=== PATIENT | female | born 1995 | race Caucasian/White ===

== ENCOUNTER 2019-02-22 23:59 | Emergency (ER) | payer OTHER ==
[~2019-02-22] VITALS: Ht 149.9 cm; Wt 63.5 kg
[2019-02-23 00:10] VITALS: BP 113/59
--- NOTE | 2019-02-23 00:13 | NUR ---
TO [facility] AMBULATORY
--- NOTE | 2019-02-23 00:50 | NUR ---
PT AMBULATED TO ER BED 02
--- NOTE | 2019-02-23 01:00 | NUR ---
NAUSEA, LOWER BACK PAIN, ABD PAIN, H/A, CHILLS SINCE MONDAY
[2019-02-23 01:07] VITALS: BP 108/62
--- NOTE | 2019-02-23 01:07 | NUR ---
Patient discharged with v/s stable. Written and verbal after care instructions given and explained. Patient alert, oriented and verbalized understanding of instructions. Ambulatory with steady gait. All questions addressed prior to discharge. ID band removed. Patient advised to follow up with PMD. Rx of Zofran and Ibuprofen given. Patient educated on indication of medication including possible reaction and side effects. Opportunity to ask questions provided and answered.
== END 2019-02-23 01:07 | disposition home or self-care (01) ==
LOC: MED 23:59
DX: K52.9 Noninfective gastroenteritis and colitis, unspecified (principal)
CPT/HCPCS: 99283

== ENCOUNTER 2020-03-14 09:10 | Emergency (ER) | payer OTHER ==
[~2020-03-14] VITALS: Ht 149.9 cm; Wt 56.7 kg
[2020-03-14 09:13] VITALS: BP 118/71
--- NOTE | 2020-03-14 09:20 | NUR ---
PT AMBULATED TO BED 12. HANDED ON URINE CUP.
--- NOTE | 2020-03-14 09:31 | NUR ---
24/F C/O INTERMITTENT LOWER ABDOMINAL PAIN RADIATING TO LOWER BACK X 6 DAYS WITH DYSURIA. NO N/V/D OR FEVER/CHILLS. VSS. MED HX: DENIES
[2020-03-14] MEDS ORDERED: KETOROLAC 60 MG/2 ML VIAL IM ONE (10:10)
--- NOTE | 2020-03-14 10:39 | NUR ---
PT STATES NO MORE PAIN AT THIS TIME. DR STARR MADE AWARE.
[2020-03-14 10:46] VITALS: BP 118/71
--- NOTE | 2020-03-14 10:47 | NUR ---
Patient discharged with v/s stable. Written and verbal after care instructions given and explained. Patient alert, oriented and verbalized understanding of instructions. Ambulatory with steady gait. All questions addressed prior to discharge. ID band removed. Patient advised to follow up with PMD. Rx of NORCO, IBUPROFEN, CIPRO, ZOFRAN given. Patient educated on indication of medication including possible reaction and side effects. Opportunity to ask questions provided and answered.
== END 2020-03-14 10:47 | disposition home or self-care (01) ==
LOC: MED 09:10
DX: N39.0 Urinary tract infection, site not specified (principal)
CPT/HCPCS: 81002; 81025; 96372; 99283; J1885

== ENCOUNTER 2020-03-24 17:34 | Emergency (ER) | payer OTHER ==
[~2020-03-24] VITALS: Ht 149.9 cm; Wt 72.6 kg
[2020-03-24 17:43] VITALS: BP 114/73
--- NOTE | 2020-03-24 17:57 | NUR ---
lisa sy at bedside evaluating pt.
--- NOTE | 2020-03-24 17:57 | NUR ---
C/O VAGINAL BLEEDING/ABD PAIN RADIATING TO BACK STARTED MONDAY AND TODAY PATIENT PASSED LARGE BLOOD CLOT WITH WHAT LOOKED LIKE TISSUE CONTENTS. PT IS ON DEPO SHOT FOR CONTROL FOR ONE MONTH. DENIES N/V . PT AOR4 , AFIBRILE , AMBULATORY WITH STEADY GAIT , PINK PALPEBRAL CONJUNCTIVA ,ANICTERIC SCLERA , SCE , FLAT SOFT ABDOMEN. NKDA NO PMH
[2020-03-24 18:30] VITALS: BP 114/73
--- NOTE | 2020-03-24 18:30 | NUR ---
Patient discharged with v/s stable. Written and verbal after care instructions given and explained regarding UTI. Patient alert, oriented and verbalized understanding of instructions. Ambulatory with steady gait. All questions addressed prior to discharge. ID band removed. Patient advised to follow up with PMD. Rx of macrobid given. Patient educated on indication of medication including possible reaction and side effects. Opportunity to ask questions provided and answered.
== END 2020-03-24 18:30 | disposition home or self-care (01) ==
LOC: MED 17:34
DX: N39.0 Urinary tract infection, site not specified (principal); L72.3 Sebaceous cyst
CPT/HCPCS: 81002; 81025; 99282; 99283

== ENCOUNTER 2020-05-15 19:11 | Emergency (ER) | payer OTHER ==
[~2020-05-15] VITALS: Ht 149.9 cm; Wt 68.9 kg
[2020-05-15 19:20] VITALS: BP 121/81
--- NOTE | 2020-05-15 19:23 | NUR ---
TO LOBBY A/W BED AMBULATORY, WITH SPICEMEN CUP FOR URINE
--- NOTE | 2020-05-15 20:22 | NUR ---
PT AMBULATED TO CHAIR C.
[2020-05-15] MEDS ORDERED: HYDROcodone/APAP 5/325 MG 1 TAB TAB PO ONE (20:30)
[2020-05-15 20:40] VITALS: BP 121/81
--- NOTE | 2020-05-15 20:40 | NUR ---
SEE COMPLETE ASSESSMENT FOR ADDITIONAL INFORMATION.
[2020-05-15 21:14] LABS: APPEARANCE,URINE CLOUDY (CLEAR); BILIRUBIN,URINE NEGATIVE (NEGATIVE); BLOOD, URINE NEGATIVE (NEGATIVE); COLOR,URINE YELLOW (YELLOW); LEUKOCYTE ESTERASE ,URINE TRACE (NEGATIVE); NITRITE, URINE POSITIVE (NEGATIVE); UGLUCOSE NEGATIVE (NEGATIVE)
[2020-05-15 22:35] LABS: RBC,URINE 0-5 /HPF (0-5)
--- NOTE | 2020-05-19 18:03 | NUR ---
Urine culture received from lab. Culture and sensitivity received and shown to Dr. Ferro. New Rx for Bactrim DS received. Patient called and given culture results. Spoke with patient to obtain pharmacy preference. New Rx called into [facility] in [place]. Copy of C&S placed in discrepancy folder.
== END 2020-05-15 20:57 | disposition home or self-care (01) ==
LOC: MED 19:11
DX: D17.9 Benign lipomatous neoplasm, unspecified (principal)
CPT/HCPCS: 81001; 81025; 87086; 99283

== ENCOUNTER 2020-05-26 11:21 | Day surgery (SDC) | payer OTHER, SELFPAY ==
[~2020-05-26] VITALS: Ht 149.9 cm; Wt 65.8 kg
== END 2020-05-26 13:15 | disposition home or self-care (01) ==
LOC: MFCC 11:21 → MDS 11:21
PROVIDERS: ATTEND Surgery
DX: D17.1 Benign lipomatous neoplasm of skin and subcutaneous tissue of trunk (principal); N13.30 Unspecified hydronephrosis; Z20.828 Contact with and (suspected) exposure to other viral communicable diseases; Z53.8 Procedure and treatment not carried out for other reasons
CPT/HCPCS: 81025; 87426; U0003; J0690; J7060

== ENCOUNTER 2020-05-28 09:58 | Day surgery (SDC) | payer OTHER, SELFPAY ==
[~2020-05-28] VITALS: Ht 149.9 cm; Wt 65.8 kg
[2020-05-28] MEDS ORDERED: KETOROLAC 30 MG/ML VIAL ONE (10:27)
[2020-05-28] MEDS ORDERED: ESMOLOL 100 MG/10 ML VIAL IV ONE (10:27)
[2020-05-28] MEDS ORDERED: MEPERIDINE 25 MG/ML SYR ONE (10:27)
[2020-05-28] MEDS ORDERED: MIDAZOLAM 2 MG/2 ML VIAL ONE (10:27)
[2020-05-28] MEDS ORDERED: LIDOCAINE MPF 1% 10 MG/ML VIAL ONE (10:27)
[2020-05-28] MEDS ORDERED: DEXAMETHASONE 4 MG/ML VIAL ONE (10:27)
[2020-05-28] MEDS ORDERED: fentaNYL citrate 0.05 MG/ML VIAL ONE (10:27)
[2020-05-28] MEDS ORDERED: LIDOCAINE 1% 500 MG/50 ML VIAL ONE ×2 (10:56→11:40)
[2020-05-28] MEDS ORDERED: BUPIVACAINE-MPF 0.25% 30 ML VIAL INJ ONE ×2 (10:56→11:40)
[2020-05-28] MEDS ORDERED: ONDANSETRON 4 MG/2 ML VIAL IV PRN (12:55)
[2020-05-28] MEDS ORDERED: MORPHINE SULFATE 4 MG/ML SYR IV PRN (12:55)
[2020-05-28] MEDS ORDERED: HYDROmorphone 1 MG/ML AMP IVP PRN (12:55)
[2020-05-28] MEDS ORDERED: HYDROcodone/APAP 5/325 MG 1 TAB TAB PO PRN (12:55)
[2020-05-28] MEDS ORDERED: MORPHINE SULFATE 2 MG/ML SYR IVP PRN (12:55)
[2020-05-28] MEDS ORDERED: diphenhydrAMINE 50 MG/ML VIAL IVP PRN (13:10)
[2020-05-28] MEDS ORDERED: LACTATED RINGERS 1,000 ML IV SCH (13:10)
[2020-05-28] MEDS ORDERED: oxyCODONE/APAP 5/325 MG 1 TAB TAB PO PRN (13:10)
[2020-05-28] MEDS ORDERED: fentaNYL citrate 0.05 MG/ML VIAL IVP PRN (13:10)
[2020-05-28] MEDS ORDERED: MEPERIDINE 25 MG/ML SYR IVP PRN (13:10)
[2020-05-28] MEDS ORDERED: ONDANSETRON 4 MG/2 ML VIAL IVP PRN (13:10)
== END 2020-05-28 14:35 | disposition home or self-care (01) ==
LOC: MDS 09:58 → MFCC 09:58 → MDS 14:35
PROVIDERS: ATTEND Surgery
DX: D17.1 Benign lipomatous neoplasm of skin and subcutaneous tissue of trunk (principal); Z79.899 Other long term (current) drug therapy
CPT/HCPCS: 21931; 88304; J0690; J1100; J1885; J2001; J2175; J2250; J3010; J3490; J7060

== ENCOUNTER 2021-09-24 21:27 | Emergency (ER) | payer OTHER, SELFPAY ==
[~2021-09-24] VITALS: Ht 149.9 cm; Wt 68.0 kg
[2021-09-24 22:06] VITALS: BP 141/95
[2021-09-24] MEDS ORDERED: methocarbamoL 500 MG TAB PO ONE (22:40)
[2021-09-24] MEDS ORDERED: LIDOCAINE 5% 1 EA PATCH TP ONE (23:01)
[2021-09-24] MEDS ORDERED: GABAPENTIN 300 MG CAP PO ONE (23:55)
[2021-09-25] MEDS ORDERED: METH-1681 PO (00:43)
[2021-09-25] MEDS ORDERED: GABA300C PO (00:43)
[2021-09-25] MEDS ORDERED: LID5T TP (00:43)
[2021-09-25 01:02] VITALS: BP 123/65
[2021-09-25] MEDS ORDERED: LIDOCAINE 5% 1 EA PATCH TP SCH (09:00)
== END 2021-09-25 01:03 | disposition home or self-care (01) ==
LOC: MED 21:27
DX: M54.2 Cervicalgia (principal); G89.29 Other chronic pain; M25.512 Pain in left shoulder; M79.602 Pain in left arm; R20.0 Anesthesia of skin; Z98.890 Other specified postprocedural states; Z79.899 Other long term (current) drug therapy
CPT/HCPCS: 70490; 71045; 93005; 99285; Q0092

== ENCOUNTER 2023-03-04 18:47 | Emergency (ER) | payer OTHER ==
[~2023-03-04] VITALS: Ht 162.6 cm; Wt 68.0 kg
[~2023-03-04 18:47] MED LIST: GABA300C PO; LID5T TP; METH-1681 PO
[2023-03-04 18:53] VITALS: BP 125/74; PULSE 94; RESP 20; TEMP 98.9; O2SAT 100
[2023-03-04 19:33] LABS: BASOPHILS % (AUTO) 0.5 % (0.0-2.0); EOSINOPHILS # (AUTO) 0.2 K/uL (0-0.4); EOSINOPHILS % (AUTO) 2.3 % (0.0-4.0); HEMATOCRIT 38.2 % (36-48); HEMOGLOBIN 12.5 g/dL (12.0-16.0); LYMPHOCYTES # (AUTO) 2.7 K/uL (2.5-16.5); LYMPHOCYTES % (AUTO) 30.4 % (20.5-51.1); MEAN CORPUSCULAR HEMOGLOBIN 25 pg (27-31); MEAN CORPUSCULAR HGB CONC 33 g/dL (33-37); MEAN CORPUSCULAR VOLUME 76.7 fL (80-94); MONOCYTES # (AUTO) 0.6 K/uL (0.8-1.0); MONOCYTES % (AUTO) 6.5 % (1.7-9.3); NEUTROPHILS # (AUTO) 5.4 K/uL (1.8-7.7); NEUTROPHILS % (AUTO) 60.3 % (42.2-75.2); PLATELET COUNT (AUTO) 271 K/uL (140-450); RED BLOOD CELL COUNT(AUTO) 4.98 MIL/uL (4.20-5.40); RED CELL DISTRIBUTION WIDTH 15.6 % (11.6-13.7)
[2023-03-04 19:52] LABS: ANION GAP 14.6 (8-16); CALCIUM 8.8 mg/dL (8.5-10.1); CARBON DIOXIDE 24.8 mmol/L (21-32); CREATININE 0.6 mg/dL (0.6-1.3); POTASSIUM 3.4 mmol/L (3.5-5.1)
[2023-03-04 20:36] LABS: APPEARANCE,URINE CLEAR (CLEAR); BILIRUBIN,URINE NEGATIVE (NEGATIVE); BLOOD, URINE 3+ (NEGATIVE); COLOR,URINE YELLOW (YELLOW); LEUKOCYTE ESTERASE ,URINE NEGATIVE (NEGATIVE); NITRITE, URINE NEGATIVE (NEGATIVE); PROTEIN,URINE NEGATIVE (NEGATIVE); UGLUCOSE NEGATIVE (NEGATIVE); UROBILINOGEN,URINE 0.2 EU/dL (0.2 - 1)
[2023-03-04 20:49] LABS: BACTERIA,URINE 10-30 (MOD) /HPF (None Seen); MUCUS,URINE None Seen /LPF (None Seen); RBC,URINE 11-20 (MOD) /HPF (0-5); SQUAMOUS EPITHELIAL CELL,UR 4-10 (MOD) /LPF (0-3 (FEW)); TRICHOMONAS,URINE None Seen /HPF (None Seen); WBC,URINE 0-5 /HPF (0-5); WHITE BLOOD CELL CASTS,URINE None Seen /LPF (None Seen); YEAST,URINE None Seen /HPF (None Seen)
[2023-03-04] MEDS ORDERED: CEPH-588 PO (21:42)
== END 2023-03-04 21:56 | disposition home or self-care (01) ==
LOC: MED 18:47
DX: O20.0 Threatened abortion (principal); O23.41 Unspecified infection of urinary tract in pregnancy, first trimester; Z3A.01 Less than 8 weeks gestation of pregnancy; Z79.2 Long term (current) use of antibiotics; Z79.899 Other long term (current) drug therapy
CPT/HCPCS: 36415; 76817; 80048; 81001; 81025; 84702; 85025; 86900; 86901; 87086; 99284; Q0092

== ENCOUNTER 2023-03-06 08:20 | Emergency (ER) | payer OTHER ==
[~2023-03-06] VITALS: Ht 149.9 cm; Wt 78.5 kg
[~2023-03-06 08:20] MED LIST changes: +CEPH-588 PO
[2023-03-06 08:41] VITALS: BP 122/62; PULSE 82; RESP 16; TEMP 98.6; O2SAT 99
[2023-03-06 09:22] LABS: BASOPHILS # (AUTO) 0.1 K/uL (0.00-0.22); BASOPHILS % (AUTO) 0.7 % (0.0-2.0); EOSINOPHILS # (AUTO) 0.1 K/uL (0-0.4); EOSINOPHILS % (AUTO) 1.2 % (0.0-4.0); HEMOGLOBIN 12.9 g/dL (12.0-16.0); LYMPHOCYTES # (AUTO) 2.4 K/uL (2.5-16.5); MEAN CORPUSCULAR HEMOGLOBIN 25 pg (27-31); MEAN CORPUSCULAR HGB CONC 33 g/dL (33-37); MEAN CORPUSCULAR VOLUME 76.9 fL (80-94); MONOCYTES # (AUTO) 0.7 K/uL (0.8-1.0); MONOCYTES % (AUTO) 7.5 % (1.7-9.3); NEUTROPHILS # (AUTO) 5.5 K/uL (1.8-7.7); NEUTROPHILS % (AUTO) 62.6 % (42.2-75.2); PLATELET COUNT (AUTO) 274 K/uL (140-450); RED BLOOD CELL COUNT(AUTO) 5.08 MIL/uL (4.20-5.40); RED CELL DISTRIBUTION WIDTH 15.4 % (11.6-13.7); WHITE BLOOD COUNT (AUTO) 8.7 K/uL (4.8-10.8)
== END 2023-03-06 11:08 | disposition home or self-care (01) ==
LOC: MED 08:20
DX: O20.0 Threatened abortion (principal); Z01.812 Encounter for preprocedural laboratory examination; Z79.899 Other long term (current) drug therapy
CPT/HCPCS: 36415; 84702; 85025; 99283